=== PATIENT | male | born 1935 | race Caucasian/White ===

== ENCOUNTER 2021-03-21 10:30 | Emergency (ER) | payer MEDICARE ==
--- NOTE | 2021-03-21 10:58 | ERPHSYRPT ---
- History of Present Illness Time Seen by Provider: 03/21/21 10:57 Source: patient, family, EMS Exam Limitations: no limitations Physician History: This is an 85-year-old white male patient of Dr. Lemos who has a history of atrial fibrillation, aortic valve replacement, [id number] diabetes, elevated cholesterol, hypertension, coronary artery disease status post cardiac catheterization and CABG who presents with altered mental status and possible left facial droop. Per patient's son the patient was helped to the bathroom at 5 AM this morning and the patient was at his baseline. Patient was put back to bed and woke up about 8:30 AM this morning and patient's son states that he had mild altered mental status and thought there was a left facial droop. Blood sugar was taken and this was in the normal range. Patient is normally immobile and does not ambulate. In addition, he is normally weak. He does not move his left shoulder because of the old fracture/injury. Patient arrives to the emergency department and is able to speak and states that he generally just does not feel well. He has had a COVID-19 vaccine. He denies chest pain. He denies shortness of breath. He denies abdominal pain. He said no nausea vomiting or diarrhea. Timing/Duration: today, resolved prior to arrival Severity: moderate Character of Deficits: none Deficits: weak (Patient is normally very weak and does not stand or ambulate well on his own) Baseline/Normal Cognition: alert oriented x 3 Current Cognition: alert oriented x 3 Baseline Gait: unable to walk Associated Symptoms: weakness, other (States he generally just does not feel well) Allergies/Adverse Reactions: amoxicillin Allergy (Severe, Verified 03/21/21 11:01) Hives Home Medications: Amlodipine Besylate 10 mg [Norvasc 10 MG] 10 mg PO DAILY 03/02/12 [History] Atorvastatin Calcium [Lipitor 20MG Tablet] 80 mg PO DAILY 03/02/12 [History] Carvedilol 12.5 mg [Coreg 12.5 mg] 25 mg PO BID 03/02/12 [History] Glipizide 5 mg [Glucotrol 5 MG] 5 mg PO DAILY 03/02/12 [History] Amiodarone HCl 200 mg PO DAILY 03/21/21 [History] Apixaban [Eliquis] 5 mg PO BID 03/21/21 [History] Hydrocodone Bit/Acetaminophen [Hydrocodon-Acetaminophn 10-325] 1 tablet PO PRN 03/21/21 [History] PANTOPRAZOLE 40 mg Tablet [Protonix 40MG Tablet] 40 mg PO DAILY 03/21/21 [History] Hx Tetanus, Diphtheria Vaccination/Date Given: No Hx Influenza Vaccination/Date Given: No Hx Pneumococcal Vaccination/Date Given: Yes Travel Risk - International Travel Have you traveled outside of the country in past 3 weeks: No - Coronavirus Screening Are you exhibiting any of the following symptoms?: No Close contact with a COVID-19 positive Pt in past 14-21 Days: No - Vaccine Status Have you recieved a Covid-19 vaccination: Yes - Review of Systems Constitutional: Weakness Eyes: No Symptoms Ears, Nose, & Throat: No Symptoms Respiratory: No Symptoms Cardiac: No Symptoms Abdominal/Gastrointestinal: No Symptoms Genitourinary Symptoms: No Symptoms Musculoskeletal: No Symptoms Skin: No Symptoms Neurological: Lethargy (Mild) Psychological: No Symptoms Endocrine: No Symptoms Hematologic/Lymphatic: No Symptoms Immunological/Allergic: No Symptoms All Other Systems: Reviewed and Negative - Past Medical History Pertinent Past Medical History: Yes Neurological History: No Pertinent History ENT History: No Pertinent History Cardiac History: Arrhythmia, Coronary Artery Disease, High Cholesterol, Hypertension, Myocardial Infarction ([place]) Respiratory History: No Pertinent History Endocrine Medical History: Diabetes Type II Musculoskeletal History: Osteoarthritis, Rheumatoid Arthritis, Other GI Medical History: No Pertinent History History: No Pertinent History Psycho-Social History: No Pertinent History Male Reproductive Disorders: Prostate Problems Other Medical History: FELL ON LEFT SHOULDER 15 YEARS AGO - WAS CARING FOR AND DIDN'T "GET IT FIXED" - UNABLE TO LIFT - NO ACTIVE SHOULDER MOVEMENT BUT D ENIES PAIN. PMHX: COLON CANCER WITH RESECTION 3 YEARS AGO. SX HX: PACEMAKER, A-FIB, AORTIC VALVE REPLACEMENT, LEFT TKR APPROX 15 YEARS AGO. - Past Surgical History Past Surgical History: Yes Neuro Surgical History: No Pertinent History Cardiac: CABG, Cardiac Catheterization Respiratory: No Pertinent History Gastrointestinal: No Pertinent History Genitourinary: No Pertinent History Musculoskeletal: Joint Replacement Male Surgical History: No Pertinent History Other Surgical History: L KNEE REPLACEMENT - Social History Smoking Status: Never smoker Exposure to second hand smoke: Yes Drug Use: none Patient Lives Alone: No - Nursing Vital Signs Nursing Vital Signs: Initial Vital Signs Temperature 97.2 F 03/21/21 10:40 Pulse Rate 65 03/21/21 10:40 Respiratory Rate 18 03/21/21 10:40 Blood Pressure 132/77 03/21/21 10:40 O2 Sat by Pulse Oximetry 97 03/21/21 10:40 Pain Scale Pain Intensity 0 - Steve Coma Scale Best Eye Response (Steve): (4) open spontaneously Best Verbal Response (Steve): (5) oriented Best Motor Response ([place]): (6) obeys commands Steve Total: 15 - Physical Exam General Appearance: lethargy (Mild) Eye Exam: bilateral eye: normal inspection, PERRL, EOMI Ears, Nose, Throat Exam: dry mucous membranes Neck Exam: normal inspection, non-tender, supple, full range of motion Respiratory: normal breath sounds, lungs clear, airway intact, No chest tenderness, No respiratory distress Cardiovascular: regular rate/rhythm, normal heart sounds, normal peripheral pulses Gastrointestinal: soft, normal bowel sounds, No tenderness Rectal Exam: not done Back Exam: normal inspection, No CVA tenderness, No vertebral tenderness Extremity Exam: normal inspection, normal range of motion, pelvis stable Mental Status: alert, oriented x 3, lethargy (Mild, rousable) 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 Comparison EKG on 03/18/2016 showed no acute ischemic changes. In the interim between that EKG and today the patient has had a cardiac pacemaker placed. There is no acute ischemic changes on today's EKG.) Ordered Tests: Active Orders 24 hr Category Date Time Status Enrichment Specialist STAT Care 03/21/21 10:54 Active EKG-ER Only STAT Care 03/21/21 10:54 Active IV Insertion STAT Care 03/21/21 10:54 Active NPO (ED) STAT Care 03/21/21 10:54 Active Pulse Oximetry (ED) STAT Care 03/21/21 10:54 Active Consult Neurology ROUTINE Cons 03/21/21 11:18 Active HEAD WITHOUT CONTRAST [CT] Stat Exams 03/21/21 10:32 Completed CBC W DIFF Stat Lab 03/21/21 11:15 Completed CMP Stat Lab 03/21/21 11:15 Completed INFLUENZA A+B INNA Stat Lab 03/21/21 10:56 Completed Lactic Acid Stat Lab 03/21/21 10:54 Completed MAGNESIUM Stat Lab 03/21/21 11:15 Completed [place] Screen Stat Lab 03/21/21 11:15 Completed NT PRO BNP Stat Lab 03/21/21 11:15 Completed TROPONIN Q3H Lab 03/21/21 11:15 Completed TROPONIN Q3H Lab 03/21/21 14:00 Ordered TROPONIN Q3H Lab 03/21/21 17:00 Ordered TROPONIN Q3H Lab 03/21/21 20:00 Ordered TROPONIN Q3H Lab 03/21/21 23:00 Ordered UA W/RFX UR CULTURE Stat Lab 03/21/21 11:24 Completed Medication Summary Generic Name Dose Route Start Last Admin Trade Name Freq PRN Reason Stop Dose Admin Sodium Chloride 1,000 mls @ 100 mls/hr 03/21/21 11:00 03/21/21 11:05 Sodium Chloride 0.9% 1000 Ml IV 04/20/21 10:59 100 mls/hr .Q10H TRAVON Administration Lab/Rad Data: Laboratory Result Diagrams 03/21/21 11:15 03/21/21 11:15 Laboratory Results 03/21/21 03/21/21 03/21/21 Range/Units 11:24 11:15 11:15 WBC (4.0-10.5) K/mm3 RBC (4.1-5.6) M/mm3 Hgb (12.5-18.0) gm/dl Hct (42-50) % MCV (78-100) fl MCH (26-32) pg MCHC (32-36) g/dl RDW (11.5-14.0) % Plt Count (150-450) K/mm3 MPV (7.5-11.0) fl Gran % (36.0-66.0) % Eos # (Auto) (0-0.5) Absolute Lymphs (auto) (1.0-4.6) Absolute Monos (auto) (0.0-1.3) Lymphocytes % (24.0-44.0) % Monocytes % (0.0-12.0) % Eosinophils % (0.00-5.0) % Basophils % (0.0-0.4) % Absolute Granulocytes (1.4-6.9) Basophils # (0-0.4) Sodium (137-145) mmol/L Potassium (3.5-5.1) mmol/L Chloride (98-107) mmol/L Carbon Dioxide (22-30) mmol/L Anion Gap (5-15) MEQ/L BUN (9-20) mg/dL Creatinine (0.66-1.25) mg/dL Estimated GFR ML/MIN Glucose (74-106) mg/dL Lactic Acid (0.4-2.0) Calcium (8.4-10.2) mg/dL Magnesium (1.6-2.3) mg/dL Total Bilirubin (0.2-1.3) mg/dL AST (17-59) U/L ALT (0-50) U/L Alkaline Phosphatase (38-126) U/L Troponin I 0.065 H* (0.000-0.034) ng/mL NT-Pro-B Natriuret Pep (0-1800) pg/mL Serum Total Protein (6.3-8.2) g/dL Albumin (3.5-5.0) g/dL Urine Color YELLOW (YELLOW) Urine Appearance SLIGHTLY CLOUDY (CLEAR) Urine pH 5.0 (5-6) Ur Specific [place] 1.017 (1.005-1.025) Urine Protein NEGATIVE (Negative) Urine Ketones NEGATIVE (NEGATIVE) Urine Blood NEGATIVE (0-5) [place]/ul Urine Nitrite NEGATIVE (NEGATIVE) Urine Bilirubin NEGATIVE (NEGATIVE) Urine Urobilinogen NEGATIVE (0-1) mg/dL Ur Leukocyte Esterase NEGATIVE (NEGATIVE) Urine WBC (Auto) NONE (0-5) /HPF Urine RBC (Auto) NONE (0-2) /HPF U Hyaline Cast (Auto) 11-25 (0-2) /LPF U Epithel Cells (Auto) NONE (FEW) /HPF Urine Bacteria (Auto) NONE SEEN (NEGATIVE) /HPF Granular Casts (Auto) 2-5 (NEGATIVE) /LPF Urine Mucus (Auto) SLIGHT (NEGATIVE) /HPF Urine Culture Reflexed NO (NO) Urine Glucose NEGATIVE (NEGATIVE) mg/dL Monoscreen NEGATIVE (Negative) Influenza Type A Ag (NEGATIVE) Influenza Type B Ag (NEGATIVE) Slides for Path Review 03/21/21 03/21/21 03/21/21 Range/Units 11:15 11:15 11:15 WBC 7.4 (4.0-10.5) K/mm3 RBC 4.15 (4.1-5.6) M/mm3 Hgb 13.7 (12.5-18.0) gm/dl Hct 41.7 L (42-50) % MCV 100.5 H (78-100) fl MCH 33.0 H (26-32) pg MCHC 32.9 (32-36) g/dl RDW 15.8 H (11.5-14.0) % Plt Count 98 L (150-450) K/mm3 MPV 10.5 (7.5-11.0) fl Gran % 71.0 H (36.0-66.0) % Eos # (Auto) 0.15 (0-0.5) Absolute Lymphs (auto) 1.52 (1.0-4.6) Absolute Monos (auto) 0.46 (0.0-1.3) Lymphocytes % 20.5 L (24.0-44.0) % Monocytes % 6.2 (0.0-12.0) % Eosinophils % 2.0 (0.00-5.0) % Basophils % 0.3 (0.0-0.4) % Absolute Granulocytes 5.25 (1.4-6.9) Basophils # 0.02 (0-0.4) Sodium 136 L (137-145) mmol/L Potassium 3.5 (3.5-5.1) mmol/L Chloride 107 (98-107) mmol/L Carbon Dioxide 23 (22-30) mmol/L Anion Gap 9.9 (5-15) MEQ/L BUN 27 H (9-20) mg/dL Creatinine 1.42 H (0.66-1.25) mg/dL Estimated GFR 50.2 ML/MIN Glucose 122 H (74-106) mg/dL Lactic Acid (0.4-2.0) Calcium 8.3 L (8.4-10.2) mg/dL Magnesium 2.0 (1.6-2.3) mg/dL Total Bilirubin 0.90 (0.2-1.3) mg/dL AST 87 H (17-59) U/L ALT 71 H (0-50) U/L Alkaline Phosphatase 168 H (38-126) U/L Troponin I (0.000-0.034) ng/mL NT-Pro-B Natriuret Pep 3750 H (0-1800) pg/mL Serum Total Protein 5.9 L (6.3-8.2) g/dL Albumin 3.0 L (3.5-5.0) g/dL Urine Color (YELLOW) Urine Appearance (CLEAR) Urine pH (5-6) Ur Specific [place] (1.005-1.025) Urine Protein (Negative) Urine Ketones (NEGATIVE) Urine Blood (0-5) [place]gil/ul Urine Nitrite (NEGATIVE) Urine Bilirubin (NEGATIVE) Urine Urobilinogen (0-1) mg/dL Ur Leukocyte Esterase (NEGATIVE) Urine WBC (Auto) (0-5) /HPF Urine RBC (Auto) (0-2) /HPF U Hyaline Cast (Auto) (0-2) /LPF U Epithel Cells (Auto) (FEW) /HPF Urine Bacteria (Auto) (NEGATIVE) /HPF Granular Casts (Auto) (NEGATIVE) /LPF Urine Mucus (Auto) (NEGATIVE) /HPF Urine Culture Reflexed (NO) Urine Glucose (NEGATIVE) mg/dL Monoscreen (Negative) Influenza Type A Ag (NEGATIVE) Influenza Type B Ag (NEGATIVE) Slides for Path Review 03/21/21 03/21/21 Range/Units 10:56 10:54 WBC (4.0-10.5) K/mm3 RBC (4.1-5.6) M/mm3 Hgb (12.5-18.0) gm/dl Hct (42-50) % MCV (78-100) fl MCH (26-32) pg MCHC (32-36) g/dl RDW (11.5-14.0) % Plt Count (150-450) K/mm3 MPV (7.5-11.0) fl Gran % (36.0-66.0) % Eos # (Auto) (0-0.5) Absolute Lymphs (auto) (1.0-4.6) Absolute Monos (auto) (0.0-1.3) Lymphocytes % (24.0-44.0) % Monocytes % (0.0-12.0) % Eosinophils % (0.00-5.0) % Basophils % (0.0-0.4) % Absolute Granulocytes (1.4-6.9) Basophils # (0-0.4) Sodium (137-145) mmol/L Potassium (3.5-5.1) mmol/L Chloride (98-107) mmol/L Carbon Dioxide (22-30) mmol/L Anion Gap (5-15) MEQ/L BUN (9-20) mg/dL Creatinine (0.66-1.25) mg/dL Estimated GFR ML/MIN Glucose (74-106) mg/dL Lactic Acid 1.1 (0.4-2.0) Calcium (8.4-10.2) mg/dL Magnesium (1.6-2.3) mg/dL Total Bilirubin (0.2-1.3) mg/dL AST (17-59) U/L ALT (0-50) U/L Alkaline Phosphatase (38-126) U/L Troponin I (0.000-0.034) ng/mL NT-Pro-B Natriuret Pep (0-1800) pg/mL Serum Total Protein (6.3-8.2) g/dL Albumin (3.5-5.0) g/dL Urine Color (YELLOW) Urine Appearance (CLEAR) Urine pH (5-6) Ur Specific [place] (1.005-1.025) Urine Protein (Negative) Urine Ketones (NEGATIVE) Urine Blood (0-5) [place]gil/ul Urine Nitrite (NEGATIVE) Urine Bilirubin (NEGATIVE) Urine Urobilinogen (0-1) mg/dL Ur Leukocyte Esterase (NEGATIVE) Urine WBC (Auto) (0-5) /HPF Urine RBC (Auto) (0-2) /HPF U Hyaline Cast (Auto) (0-2) /LPF U Epithel Cells (Auto) (FEW) /HPF Urine Bacteria (Auto) (NEGATIVE) /HPF Granular Casts (Auto) (NEGATIVE) /LPF Urine Mucus (Auto) (NEGATIVE) /HPF Urine Culture Reflexed (NO) Urine Glucose (NEGATIVE) mg/dL Monoscreen (Negative) Influenza Type A Ag NEGATIVE (NEGATIVE) Influenza Type B Ag NEGATIVE (NEGATIVE) Slides for Path Review - Progress Progress: improved, re-examined Progress Note: 03/21/21 11:41 CAT scan of the head without contrast shows a 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 Medical decision making: This patient was discussed with his primary care provider, Dr. Lemos. I reviewed the patient's history prior to this morning's visit and the current results of the CAT scan of the head. Dr. Lemos stated to do my altered mental status work-up but it is not necessary, per his direction, to obtain a neurology consultation. He knows this patient very well and the patient's family. I am to call him once I get the results of his altered mental status work-up. 03/21/21 12:22 Medical decision making: This patient's POA, his son, stated that the patient is DNR. He does not want to be defibrillated or placed on life support or intubated placed on mechanical ventilator. I reviewed the results of the work- up with Dr. Lemos. This included the lab results and Dr. Lemos is aware that the patient's troponin is elevated 0.065. He is also aware that the patient has a platelet count of 98,000. We will bring him in the hospital, place him in observation. We will hydrate him and repeat labs in the morning. We will obtain social service consultation for discharge planning. 03/21/21 12:29 Medical decision making: I spoke with the patient's son and the patient's primary care provider. After a long discussion with the patient's primary care physician and after a discussion between the patient's primary care provider and the patient's POA, his son, they have decided to make arrangements for hospice care at the home and not to be admitted into the hospital. Discussed with : Clay Counseled pt/family regarding: lab results, diagnosis, need for follow-up, rad results - Departure Departure Disposition: Home Clinical Impression: Weakness, Acute renal insufficiency, Elevated troponin Condition: Fair Critical Care Time: No Referrals: EFREN LEMOS MD [Primary Care Provider] -
[2021-03-21] MEDS ORDERED: Sodium Chloride 0.9% 1000 ML 1,000 ML IV SCH (11:00)
--- NOTE | 2021-03-21 11:01 | XRAY ---
Indication: Left facial droop. Altered mental status. Multiple contiguous axial images obtained through the head without contrast. Comparison: None Age-appropriate global atrophy and moderate periventricular degenerative micro-ischemia bilaterally. Small focus old right occipital lobe infarct. No acute intracranial hemorrhage, hydrocephalus, or mass effect. Fourth ventricle is midline. Bony calvarium intact. Visualized paranasal sinuses and mastoid air cells are clear. 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
[2021-03-21] MEDS ORDERED: Sodium Chloride 0.9% 1000 ML 1,000 ML ONE (11:03)
[2021-03-21 11:21] LABS: Absolute Neutrophil Ct (ANC) 5.25 (1.4-6.9); BASOPHIL % 0.3 % (0.0-0.4); Basophil (Absolute #) 0.02 (0-0.4); Eosinophil (Absolute #) 0.15 (0-0.5); Hematocrit 41.7 % (42-50); Hemoglobin 13.7 gm/dl (12.5-18.0); Lymphocyte (Absolute #) 1.52 (1.0-4.6); Lymphocytes % 20.5 % (24.0-44.0); Mean Cell Volume 100.5 fl (78-100); Mean Corpuscular Hgb Concent. 32.9 g/dl (32-36); Mean Platelet Volume 10.5 fl (7.5-11.0); Monocyte (Absolute #) 0.46 (0.0-1.3); Monocytes % 6.2 % (0.0-12.0); Platelet Count 98 K/mm3 (150-450); Red Blood Count 4.15 M/mm3 (4.1-5.6); Red Cell Distribution Width 15.8 % (11.5-14.0); White Blood Count 7.4 K/mm3 (4.0-10.5)
[2021-03-21 11:35] LABS: ANION GAP 9.9 MEQ/L (5-15); BILIRUBIN,TOTAL 0.9 mg/dL (0.2-1.3); Calcium 8.3 mg/dL (8.4-10.2); Creatinine 1 1.42 mg/dL (0.66-1.25); EST GLOMERULAR FILTRATION RATE 50.2 ML/MIN; Potassium 3.5 mmol/L (3.5-5.1); Total Protein 5.9 g/dL (6.3-8.2)
[2021-03-21 11:36] VITALS: PULSE 60
[2021-03-21 11:37] LABS: Appearance SLIGHTLY CLOUDY (CLEAR); Bilirubin NEGATIVE (NEGATIVE); Blood NEGATIVE Ery/ul (0-5); Glucose NEGATIVE (NEGATIVE); Ketones NEGATIVE (NEGATIVE); Leukocyte Esterase NEGATIVE (NEGATIVE); Mucus SLIGHT /HPF (NEGATIVE); Nitrite NEGATIVE (NEGATIVE); Protein,Urine Dip NEGATIVE (Negative); Specific Gravity 1.017 (1.005-1.025); Urobilinogen NEGATIVE mg/dL (0-1)
[2021-03-21 11:38] LABS: Bacteria NONE SEEN /HPF (NEGATIVE)
[2021-03-21 12:04] LABS: INFLUENZA A NEGATIVE (NEGATIVE); INFLUENZA B NEGATIVE (NEGATIVE)
[2021-03-21 13:46] VITALS: BP 101/60; O2SAT 95
== END 2021-03-21 14:18 | disposition home or self-care (01) ==
LOC: ED 10:30
DX: R41.82 Altered mental status, unspecified (principal); R53.1 Weakness; R77.8 Other specified abnormalities of plasma proteins; N28.9 Disorder of kidney and ureter, unspecified; I48.91 Unspecified atrial fibrillation; E11.9 Type 2 diabetes mellitus without complications; E78.5 Hyperlipidemia, unspecified; I10 Essential (primary) hypertension; I25.10 Atherosclerotic heart disease of native coronary artery without angina pectoris; Z20.822 Contact with and (suspected) exposure to COVID-19; Z79.899 Other long term (current) drug therapy
CPT/HCPCS: 36415; 70450; 80053; 81001; 83605; 83735; 83880; 84484; 85025; 86308; 87400; 93005; 93041; 94760; 96360; 96361; 99284